=== PATIENT | male | born 1960 | race Caucasian/White ===

== ENCOUNTER → 2019-07-16 11:00 | Outpatient (CLI) | payer OTHER, SELFPAY ==
--- NOTE | 2019-07-16 | DI.US.S_ITS ---
PROCEDURE: US SCROTUM INDICATIONS: Scrotal varices TECHNIQUE: Real-time scanning was performed of the scrotum and testicles, with image documentation. Color and pulse Doppler interrogation was performed of both testicles. COMPARISON: Outside Film, US, US TESTICULAR SCROTUM + DOPPLER, 11/26/2018, 18:17. US, US TESTICULAR+DOPPLER, 12/26/2016, 17:09. FINDINGS: Right: Testicle is normal in size at 4.9 x 2.3 x 3.3 cm, and homogenous in echotexture. Epididymis is normal in overall size and morphology. Small hydrocele and mild varicocele. Overlying scrotal skin is normal in thickness. Left: Testicle is normal in size at 4.8 x 2.1 x 3.6 cm, and homogeneous in echotexture. Heterogeneous solid mass redemonstrated unchanged measuring 0.5 x 0.5 x 0.7 cm. Cyst Epididymis is normal in overall size and morphology. Small hydrocele and mild varicocele. Overlying scrotal skin is normal in thickness. Doppler: Color and pulse Doppler demonstrate normal and symmetric arterial flow in both testicles. IMPRESSION: 1. Solid heterogeneous mass unchanged involving the left testicle dating back to initial ultrasound on 12/27/16. 2. Trace hydrocele and mild varicocele bilaterally. Dictated by: Wander GOLDEN Interpreted: Lianet John MD on 07/16/2019 at 13:37 Approved by: Lianet John M.D. on 07/16/2019 at 14:02
== END ==
PROVIDERS: PCP Family Medicine; Visit Provider Urology
DX: I86.1 Scrotal varices (principal); N50.9 Disorder of male genital organs, unspecified
CPT/HCPCS: 76870

== ENCOUNTER → 2020-08-21 15:13 | Outpatient (CLI) | payer OTHER, SELFPAY ==
--- NOTE | 2020-08-21 | DI.US.S_ITS ---
PROCEDURE: US SCROTUM INDICATIONS: Scrotal varices TECHNIQUE: Real-time scanning was performed of the scrotum and testicles, with image documentation. Color and pulse Doppler interrogation was performed of both testicles. COMPARISON: [facility], US, US TESTICULAR+DOPPLER, 12/26/2016, 17:09. [facility] Ultrasound, US, US TESTICULAR+DOPPLER, 01/21/2017, 16:55. [facility], US, TESTICLE IMAGING, 09/01/2017, 16:26. Outside Film, US, US TESTICULAR SCROTUM + DOPPLER, 11/26/2018, 18:17. Outside Film, US, US ABDOMEN COMPLETE, 12/24/2018, 15:17. [facility], US, US SCROTUM, 07/16/2019, 11:32. FINDINGS: Right: Testicle is normal in size at 4.2 x 2 x 3.6 cm, and homogenous in echotexture. Epididymis is normal in overall size and demonstrates calcification within the epididymal head. No hydrocele or varicoceles. Overlying scrotal skin is normal in thickness. Left: Testicle is normal in size at 4.5 x 2.4 x 3.7 cm, and again demonstrates a partially calcified shadowing nodule that measures 6 x 4 x 5 mm. In 2017, this focus measured 5 x 4 x 6 mm. Epididymis is normal in overall size and morphology. No hydrocele or varicoceles. Overlying scrotal skin is normal in thickness. Doppler: Color and pulse Doppler demonstrate normal and symmetric arterial flow in both testicles. IMPRESSION: There is a stable left testicular mass, which is not changed compared to 2017. Negative for varicocele. Dictated by: Eusebio Acuña M.D. on 08/22/2020 at 8:15 Approved by: Eusebio Acuña M.D. on 08/22/2020 at 8:18
== END ==
PROVIDERS: PCP Family Medicine; Referring Provider Urology; Visit Provider Urology
DX: I86.1 Scrotal varices (principal); N50.9 Disorder of male genital organs, unspecified
CPT/HCPCS: 76870